=== PATIENT | male | born 1965 | race Caucasian/White ===

== ENCOUNTER 2019-10-21 12:17 | Emergency (ER) | payer BC ==
[2019-10-21] MEDS ORDERED: KETOROLAC TROMETHAMINE INJ/PF 30 MG/1 ML SDV IV ONE ×2 (12:34→14:53)
[2019-10-21] MEDS ORDERED: ONDANSETRON HCL INJ/PF 4 MG/2 ML SDV IV ONE ×2 (12:34→14:52)
[2019-10-21] MEDS ORDERED: MORPHINE SULFATE 10 MG/ML INJ IV ONE (12:36)
[2019-10-21] MEDS ORDERED: NORMAL SALINE 1000 ML 1,000 ML IV ONE (12:36)
--- NOTE | 2019-10-21 12:39 | ER Document Report ---
ED Medical Screen (RME) - General Chief Complaint: Possible Kidney Stone Stated Complaint: NAUSEA/VOMITING Time Seen by Provider: 10/21/19 12:31 Primary Care Provider: SHAWNA ESCOBAR [Primary Care Provider] - Follow up as needed Notes: 54-year-old otherwise healthy male presents emergency department with acute onset right flank pain since 1130 this morning. Patient states it hit him all of a sudden and he has nausea and vomiting. Patient is diaphoretic in acute distress. No fevers or chills, no previous symptoms prior to this onset. Exam: In distress but nontoxic appearing, diaphoretic, right CVAT I have greeted and performed a rapid initial assessment of this patient. A comprehensive ED assessment and evaluation of the patient, analysis of test results and completion of medical decision making process will be conducted by an additional ED providers. - Related Data Allergies/Adverse Reactions: No Known Allergies Allergy (Unverified 10/21/19 12:29) Past Medical History - Social History Chew tobacco use (# tins/day): No Frequency of alcohol use: None Drug Abuse: None - Immunizations Hx Diphtheria, Pertussis, Tetanus Vaccination: Yes Physical Exam - Vital signs Vitals: Temp Pulse Resp BP Pulse Ox 97.5 F 50 L 18 141/69 H 98 10/21/19 12:28 10/21/19 12:28 10/21/19 12:28 10/21/19 12:28 10/21/19 12:28 Course - Vital Signs Vital signs: Temp Pulse Resp BP Pulse Ox 97.5 F 50 L 18 141/69 H 98 10/21/19 12:29 10/21/19 12:29 10/21/19 12:29 10/21/19 12:29 10/21/19 12:29 Doctor's Discharge - Discharge Referrals: SHAWNA ESCOBAR [Primary Care Provider] - Follow up as needed
[2019-10-21 13:01] LABS: ABSOLUTE EOSINOPHILS # (AUTO) 0.2 10^3/uL (0.0-0.6); ABSOLUTE LYMPHOCYTES (AUTO) 1.8 10^3/uL (0.5-4.7); ABSOLUTE MONOCYTES (AUTO) 0.7 10^3/uL (0.1-1.4); ABSOLUTE NEUT (AUTO) 4.5 10^3/uL (1.7-8.2); BASOPHILS % (AUTO) 0.5 % (0-2); EOSINOPHILS % (AUTO) 2.9 % (0-6); HEMATOCRIT 48.1 % (37.9-51.0); HEMOGLOBIN 16.3 g/dL (13.5-17.0); LYMPHOCYTES % (AUTO) 24.6 % (13-45); MEAN CORPUSCULAR HGB CONC 33.9 g/dL (32.0-36.0); MEAN CORPUSCULAR VOLUME 85 fl (80-97); MONOCYTES % (AUTO) 9.4 % (3-13); PLATELET COUNT 252 10^3/uL (150-450); RED BLOOD COUNT 5.64 10^6/uL (4.35-5.55); RED CELL DISTRIBUTION WIDTH 13.3 % (11.5-14.0); SEGMENTED NEUTROPHILS % (AUTO) 62.6 % (42-78); TOTAL CELLS COUNTED % (AUTO) 100 %; WHITE BLOOD COUNT 7.2 10^3/uL (4.0-10.5)
[2019-10-21 13:35] LABS: ALBUMIN 4.4 g/dL (3.5-5.0); ALKALINE PHOSPHATASE 48 U/L (38-126); ANION GAP 13 (5-19); ASPARTATE AMINO TRANSFERASE 26 U/L (17-59); BILIRUBIN,DIRECT 0.2 mg/dL (0.0-0.4); BILIRUBIN,TOTAL 0.8 mg/dL (0.2-1.3); BLOOD UREA NITROGEN 18 mg/dL (7-20); CALCIUM 9.3 mg/dL (8.4-10.2); CARBON DIOXIDE 21 mmol/L (22-30); CHLORIDE 105 mmol/L (98-107); GLUCOSE 150 mg/dL (75-110); POTASSIUM 3.9 mmol/L (3.6-5.0); TOTAL PROTEIN 7.1 g/dL (6.3-8.2)
--- NOTE | 2019-10-21 13:41 | ER Document Report ---
ED General - General Chief Complaint: Possible Kidney Stone Stated Complaint: NAUSEA/VOMITING Time Seen by Provider: 10/21/19 12:31 Primary Care Provider: SHAWNA ESCOBAR [NO LOCAL MD] - Follow up as needed - HPI Notes: 54m h/o 1 prior kidney stone many years ago presents to ED today ambulatory w/ family few hours s/p acute onset severe, R flank pain which has since been coming and going and associated with 1-2 episodes of vomiting each bout. initially on arrival to our facility patient was seen quickly and given 1 L IV NS, 4 IV morphine, 15 IV Toradol, 4 IV Zofran and went for CT abdomen pelvis. pt denies any trauma. no f/c/s. no dysuria, retention, hematuria. no penile d/c or scrotal/testicular pain/swelling/lesions. no focal neuro deficits or difficulty ambulatory or (near)syncope. - Related Data Allergies/Adverse Reactions: No Known Allergies Allergy (Unverified 10/21/19 12:29) Past Medical History - General Information source: Patient, [facility] Records - Social History Smoking Status: Never Smoker Chew tobacco use (# tins/day): No Frequency of alcohol use: None Drug Abuse: None Lives with: Family Family History: Reviewed & Not Pertinent, Other - renal stones Patient has suicidal ideation: No Patient has homicidal ideation: No - Immunizations Hx Diphtheria, Pertussis, Tetanus Vaccination: Yes Review of Systems - Review of Systems Constitutional: No symptoms reported. denies: Chills, Diaphoresis, Fever, Malaise, Weakness, Weight gain, Weight loss, Recent illness EENT: No symptoms reported Cardiovascular: No symptoms reported Respiratory: No symptoms reported Gastrointestinal: No symptoms reported, See HPI, Nausea, Vomiting Genitourinary: See HPI, Flank pain. denies: Burning, Dysuria, Discharge, Frequency, Hematuria, Incontinence, Urgency Male Genitourinary: No symptoms reported Musculoskeletal: No symptoms reported Skin: No symptoms reported Hematologic/Lymphatic: No symptoms reported Neurological/Psychological: No symptoms reported Physical Exam - Vital signs Vitals: Temp Pulse Resp BP Pulse Ox 97.5 F 50 L 18 141/69 H 98 10/21/19 12:28 10/21/19 12:28 10/21/19 12:28 10/21/19 12:28 10/21/19 12:28 Interpretation: Bradycardic - but both he and are healthy fit appearing. 54 male appears much younger than stated age. No: Hypotensive, Hypoxic, Tachypneic, Febrile - General General appearance: Other - intermittently in bouts of pain w/ nbnb vomiting episodes, punctated by periods of relief. otherwise nontoxic appearing no resp distress. - HEENT Head: Normocephalic, Atraumatic Eyes: Normal Conjunctiva: Normal Extraocular movements intact: Yes Mouth/Lips: Normal Mucous membranes: Normal Neck: Normal, Supple. No: Meningismus - Respiratory Respiratory status: No respiratory distress Chest status: Nontender Breath sounds: Normal Chest palpation: Normal - Cardiovascular Rhythm: Regular Heart sounds: Normal auscultation Murmur: No - Abdominal Inspection: Normal Distension: No distension Bowel sounds: Normal Tenderness: Nontender Organomegaly: No organomegaly - Back Back: CVA tenderness - Riught. No: Deformity/step-off, Vertebra tenderness, Wounds - Extremities General upper extremity: Normal inspection, Nontender, Normal color, Normal ROM, Normal temperature General lower extremity: Normal inspection, Nontender, Normal color, Normal ROM, Normal temperature, Normal weight bearing. No: Manfred's sign - Neurological Neuro grossly intact: Yes Cognition: Normal Orientation: AAOx4 [place] Coma Scale Eye Opening: Spontaneous [place] Coma Scale Verbal: Oriented [place] Coma Scale Motor: Obeys Commands [place] Coma Scale Total: 15 Speech: Normal Motor strength normal: LUE, RUE, LLE, RLE Sensory: Normal - Psychological Associated symptoms: Normal affect, Normal mood - Skin Skin Temperature: Warm Skin Moisture: Dry Skin Color: Normal Course - Re-evaluation Re-evalutation: 10/21/19 15:25 Abdomen/Pelvis CT 10/21/19 12:37 IMPRESSION: There is a 3 mm obstructive calculus in the proximal 3rd of the right ureter with mild associated right hydronephrosis and hydroureter. There is an additional nonobstructive calculus in the central right renal pelvis. 10/21/19 15:25 pt had some releif w/ initial meds. when i interviewed was retching and pain had returned. gave another 15 toradol, 0.5 dilaudid, 4 zofran and 2nd liter IVF of LR. reviewed ct above. dispo pending pain control and ability to tolerate po. no evidence labs of renal compromise but pending UA results to ensure no infecti on 10/21/19 16:12 UA shows no signs of infection - Vital Signs Vital signs: Temp Pulse Resp BP Pulse Ox 97.7 F 56 L 15 147/75 H 97 10/21/19 18:55 10/21/19 18:55 10/21/19 18:55 10/21/19 18:55 10/21/19 18:55 - Laboratory Result Diagrams: 10/21/19 12:52 10/21/19 12:52 Laboratory results interpreted by me: 10/21/19 10/21/19 10/21/19 12:52 12:52 14:58 RBC 5.64 H Carbon Dioxide 21 L Glucose 150 H Urine Protein 30 H Urine Ketones TRACE H Urine Blood LARGE H Urine Urobilinogen 2.0 H - Diagnostic Test Radiology reviewed: Image reviewed, Reports reviewed Discharge - Discharge Clinical Impression: Ureteral calculus, right Condition: Fair Disposition: HOME, SELF-CARE Additional Instructions: today in the ER you had a CT scan which showed a 3mm stone in the proximal Right ureter causing some obstruction. your kidney function is good though, and you have no evidence of infection of the urinary system. therefore the main thing upon discharge is that you're able to cont to eat and drink to stay hydrated. watch for fevers. usually this size stones will pass on it's own; try straining your urine when you pee to catch any stone that passes you can bring to follow up urology appt as needed. otherwsie follow up w/ your regular doctor for regular health maintenance visits. i will prescribe a few days of medicine that can help with urinary spasm and you can use 600mg ibuprofen every 6 hr as needed for baseline pain control, and if not amenable to this can use 5mg oxycodone along w/ miralax to prevent constipation. if you take the oxycodone(s) take miralax in fluid once a day or can incrase to two or three times a day to keep stools soft pudding consistency and regular. Prescriptions: Oxycodone HCl [Oxy-Ir 5 mg Tablet] 5 mg PO Q4HP PRN #12 tab PRN Reason: Tamsulosin HCl [Flomax 0.4 mg Cap.sr] 0.4 mg PO DAILY #7 cap.sr.24h Ibuprofen 600 mg PO Q6 PRN #18 tablet PRN Reason: Pain Scale Of 1 Referrals: LOCALMD,NO [NO LOCAL MD] - Follow up as needed
--- NOTE | 2019-10-21 13:49 | RADIOLOGY REPORT (SQ) ---
EXAM DESCRIPTION: CT ABD/PELVIS NO ORAL OR IV COMPLETED DATE/TIME: 10/21/2019 1:16 pm REASON FOR STUDY: R flank pain ?kidney stone COMPARISON: 06/23/2012 TECHNIQUE: CT scan of the abdomen and pelvis performed without intravenous or oral contrast. Images reviewed with lung, soft tissue, and bone windows. Reconstructed coronal and sagittal MPR images revi ewed. All images stored on PACS. All CT scanners at this facility use dose modulation, iterative reconstruction, and/or weight based d osing when appropriate to reduce radiation dose to as low as reasonably achievable (ALARA). [facility]: Dose Right [facility]: CareDose [facility]: Dose Right [facility]: Teradose 4D [facility]: Smart SEVENROOMS RADIATION DOSE: CT Rad equipment meets quality standard of care and radiation dose reduction techniq ues were employed. CTDIvol: 10.5 mGy. DLP: 631 mGy-cm.mGy. LIMITATIONS: None. FINDINGS: LOWER CHEST: No significant findings. No nodules or infiltrates. NON-CONTRASTED LIVER, SPLEEN, ADRENALS: Evaluation limited by lack of IV contrast. No identified sign ificant masses. PANCREAS: No masses. No peripancreatic inflammatory changes. GALLBLADDER: No identified stones by CT criteria. No inflammatory changes to suggest cholecystitis. RIGHT KIDNEY AND URETER: No solid masses. There is a 3 mm obstructive calculus in the proximal 3rd o f the right ureter with mild associated right hydronephrosis and hydroureter. There is an additional nonobstructive calculus in the central right renal pelvis. LEFT KIDNEY AND URETER: No solid masses. No significant calcification. No hydronephrosis or hydrouret er. AORTA AND RETROPERITONEUM: No aneurysm. No retroperitoneal masses or adenopathy. BOWEL AND PERITONEAL CAVITY: No obvious masses or inflammatory changes. No free fluid. APPENDIX: Normal. PELVIS, BLADDER, AND ABDOMINAL WALL:No abnormal masses. No free fluid. Bladder normal. BONES: No significant findings. OTHER: No other significant finding. IMPRESSION: There is a 3 mm obstructive calculus in the proximal 3rd of the right ureter with mild a ssociated right hydronephrosis and hydroureter. There is an additional nonobstructive calculus in the central right renal pelvis. TECHNICAL DOCUMENTATION: JOB ID: [id number] Quality ID # [id number]: Final reports with documentation of one or more dose reduction techniques (e.g., Au tomated exposure control, adjustment of the mA and/or kV according to patient size, use of iterative reconstruction technique) 2010 [employer]- All Rights Reserved Reading location - IP/workstation name: [id number]
[2019-10-21] MEDS ORDERED: RINGERS SOLUTION,LACTATED 1,000 ML IV ONE (14:52)
[2019-10-21] MEDS: HYDROMORPHONE HCL INJ/PF 2 MG/ML AMPULE IV PRN ×2 (15:01→17:58)
[2019-10-21 15:27] LABS: APPEARANCE,URINE SLIGHTLY-CLOUDY; BILIRUBIN,URINE NEGATIVE (NEGATIVE); COLOR,URINE YELLOW; GLUCOSE, URINE NEGATIVE (NEGATIVE); KETONES,URINE TRACE mg/dL (NEGATIVE); LEUKOCYTE ESTERASE,URINE NEGATIVE (NEGATIVE); NITRITE,URINE NEGATIVE (NEGATIVE); PROTEIN,URINE 30 mg/dL (NEGATIVE); URINE SPECIFIC GRAVITY 1.023
[2019-10-21] MEDS ORDERED: PROMETHAZINE HCL INJ 25 MG/1 ML VIAL IV ONE (17:25)
[2019-10-21 18:57] VITALS: BP 147/75
== END 2019-10-21 18:55 | disposition home or self-care (01) ==
LOC: ER 12:17
DX: N20.1 Calculus of ureter (principal); R10.9 Unspecified abdominal pain; R11.2 Nausea with vomiting, unspecified
CPT/HCPCS: 96376; 99284; 96361; 96374; 96375; 36415; 85025; 80053; 81001; 74176; J1885; J2270; J1170; J2550; J2405; J7030; J7120

== ENCOUNTER 2020-07-14 07:49 | Day surgery (SDC) | payer BC ==
[~2020-07-14 07:49] MED LIST: PROPOFOL INJ 200 MG/20 ML VIAL IV ONE
[2020-07-14] MEDS ORDERED: PROPOFOL INJ 200 MG/20 ML VIAL IV ONE (11:06)
--- NOTE | 2020-07-14 11:34 | Operative Report ---
Operative Report DATE OF SURGERY: 07/14/20 Operative Report: The risks, benefits and alternatives of the procedure including the risk of bleeding, perforation requiring surgery have been explained to the patient in detail and informed consent has been obtained. Patient is placed in a left, lateral decubital position. Timeout was called. Propofol medication is administered. Rectal examination is done which did not reveal any masses, tears or fissures. An Olympus videoscope was introduced into the patient's rectum. Scope was then carefully advanced all the way to the cecum. The cecum was identified by the usual anatomical landmarks including the ileocecal valve as well as the appendiceal office. Photodocumentation is obtained. Scope was then sequentially pulled back via the various segments of the colon including the ascending colon, hepatic flexure, transverse colon, splenic flexure, descending colon finding to the rectosigmoid portions of the colon. Retroflexion maneuvers performed. PREOPERATIVE DIAGNOSIS: Positive Cologuard test POSTOPERATIVE DIAGNOSIS: Colon polyp in the sigmoid status post snare polypectomy with retrieval. Internal hemorrhoids OPERATION: Colonoscopy with snare polypectomy SURGEON: WADE DANIELS ANESTHESIA: LMAC TISSUE REMOVED OR ALTERED: As noted above. COMPLICATIONS: None. ESTIMATED BLOOD LOSS: None. INTRAOPERATIVE FINDINGS: As noted above. PROCEDURE: Patient tolerated the procedure well. No immediate postprocedure complications are noted. Patient is discharged in good condition. Discharge date 07/14/2020. Discharge diet: Regular. Discharge activity: Regular. 2 to 3-week follow-up to discuss findings. Patient is instructed call the office or proceed to the emergency room should there be any further problems or questions. Wait on the pathology. Surveillance 3 to 5 years
[2020-07-14 12:24] VITALS: BP 132/68
== END 2020-07-14 12:26 | disposition home or self-care (01) ==
LOC: END 07:49
PROVIDERS: ATTEND Internal Medicine Gastroenterology
DX: D12.5 Benign neoplasm of sigmoid colon (principal); K64.8 Other hemorrhoids; R19.5 Other fecal abnormalities; K21.9 Gastro-esophageal reflux disease without esophagitis; Z68.28 Body mass index [BMI] 28.0-28.9, adult
CPT/HCPCS: 45385; 88305 ×2; 00812; J2704; 812